=== PATIENT | female | born 2005 | race Caucasian/White ===

== ENCOUNTER 2024-12-18 10:55 | Outpatient (AMB) | payer OTHER, SELFPAY ==
--- NOTE | 2024-12-18 10:58 | AM.OFFWIN_ITS ---
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 - Symptoms started the previous day, isabel racterized by light sensitivity and inability to keep the left eye open yesterday. - The discomfort is persistent and worse ns with light exposure; associated with headache. - She wears contact lenses and may have scratched her eye during handling, which may be related to the onset of symptoms. - Past similar symptoms resolved spontan eously without intervention. - No vision change, lesions, or drainage noted; prior eye exam within the past six months, with a history of poor vision. Next eye exam Monday. Discussion Notes During the consultation, I explained to the patient that she likely has a superficial corneal abrasion in her left eye. I discussed the probable cause being the handling of contact lenses, and advised immediate cessation of contact lens use until further evaluation by her eye doctor. Erythromycin ointment as a therapeutic measure was recommended to promote healing, with emphasis on potential temporary visual blurring and discomfort. I advised the patient to use sunglasses for light sensitivity, and encouraged return visits to the eye doctor within a few days for a comprehensive assessment, as she already has an appointment. I emphasized that if symptoms worsen or do not improve, further medical evaluation would be necessary. All consent for these recommendations was obtained from the patient. Assessment and Plan 1. Superficial Corneal Abrasion, Left Ey e: I determined the likely diagnosis of a superficial corneal abrasion from contact lens use. Management includes erythromycin ointment and refraining from contact use until further evaluation. Pharmacological treatment may cause blurred vision, necessitating precaution with sunglasses. 2. Possible Contact Lens-Related Discomf ort: Assessment suggests potential discomfort from current contact lenses. Advising patient to monitor and discuss with her eye care provider about possible fitting concerns. Patient Instructions - Apply erythromycin ointment to both ey es twice daily for five days. - Avoid contact lenses until evaluation by your eye doctor. - Wear sunglasses for light sensitivity. - Attend your scheduled appointment with the eye doctor on Monday. - Monitor symptoms and seek medical atte ntion if symptoms worsen or do not improve. Consent I reviewed with the patient the need for erythromycin ointment to treat the corneal abrasion. I outlined the risks of blurred vision and photophobia, for which sunglasses were recommended. The patient consented to the treatment plan and acknowledged understanding of the discussed details and follow-up procedures. Patient was informed and verbally consented to the use of an ambient scribe for clinic note documentation during this visit. Total time spent caring for the patient today was 30 minutes. This includes time spent before the visit reviewing the chart, time spent during the visit, and time spent after the visit on documentation, reviewing laboratory results, diagnostic imaging, medications, performing a medically necessary evaluation, counseling on diagnoses, care coordination, ordering appropriate tests, ordering appropriate medications, review of tests performed by other providers, reporting test results with the patient, communication with other healthcare providers. Review of Systems Eyes Reports photophobia (mild on L ) Physical Exam Vital Signs: Last Vital Signs Temp 98.2 F 12/18/24 11:03 Pulse 60 12/18/24 11:03 Resp 12 12/18/24 11:03 BP 106/68 12/18/24 11:03 Pulse Ox 99 12/18/24 11:03 Oxygen Delivery Method Room Air 12/18/24 11:03 BMI result Body Mass Index 21.1 Eyes Visual Simons: normal visual simons by confrontation Alignment and Position: alignment normal Periorbital: periorbital findings normal Eyelids: Yes eyelids normal Conjunctivae: conjunctivae normal Sclerae: sclerae normal Corneas: corneas abnormal on the left fluorescein used and abrasion central and fluorescein used Pupils: Equal, round and reactive pupils present Direct Ophthalmoscopy: normal light reflex and photophobia (mild on L ) Eyes/upper lids images: 2 1. superficial abrasion Neuro Cranial nerves: Yes Equal, round and reactive pupils present Office Procedures Fluorescein eye exam Details: + findings Assessment & Plan Assessment & Plan (1) Corneal abrasion due to contact lens: Code(s): H18.829 - Corneal disorder due to contact lens, unspecified eye Qualifiers: Laterality: left Qualified Code(s): H18.822 - Corneal disorder due to contact lens, left eye Plan . Medications: New 2 erythromycin 0.5 inches ophthalmic (eye) BID 5 days 3.5 grams 0RF Coding Level of Care Code Est Pt Level 4 (63925) Diagnoses Corneal abrasion of left eye due to contact lens H18.822 Laterality: left
[2024-12-18 11:03] VITALS: BP 106/68; PULSE 60; RESP 12; TEMP 36.8; O2SAT 99; BMI 21.1
== END 2024-12-18 11:22 | disposition home or self-care (01) ==
PROVIDERS: Visit Provider Nurse Practitioner Family
DX: H18.822 Corneal disorder due to contact lens, left eye (principal)

== ENCOUNTER → 2024-12-18 10:55 | Outpatient (BNVA) | payer OTHER, SELFPAY | DX: H18.822 Corneal disorder due to contact lens, left eye (principal) | CPT/HCPCS: 99212 ==

== ENCOUNTER 2025-06-22 15:17 | Emergency (ER) | payer SELFPAY ==
[2025-06-22 15:26] VITALS: BP 123/73; PULSE 110; RESP 16; TEMP 36.8; O2SAT 100; BMI 19.7
--- NOTE | 2025-06-22 15:34 | ED.GENADULT ---
HPI - General Adult General Chief complaint: Abdominal Pain Stated complaint: abd pain Time Seen by Provider: 06/22/25 16:49 Source: patient, RN notes reviewed and old records reviewed Mode of arrival: ambulatory Limitations: no limitations History of Present Illness ED Provider: Arab[facility] narrative: Patient is a 20-year-old female referred to the emergency department from urgent care for evaluation of intermittent epigastric abdominal pain for the past few months which has worsened today as well as abnormal vaginal bleeding/discharge. Patient states that she was recently treated for a UTI and ?something else? around 1 month ago. Since that time has been having deferring types of abnormal vaginal bleeding which she describes as spotting, different colors and textures, heavier than spotting. States she has not had to change her pad or tampon more frequently than once per hour. Today she developed epigastric pain while at work which was worsened by drinking water and worsened by walking around. She denies any vomiting, diarrhea or constipation but does report intermittent nausea. States that she is currently on OCP. Denies any new sexual partners. Denies any dysuria, frequency, hematuria. Denies back or flank pain. MD complaint: abdominal pain and abnormal vaginal discharge Onset (ago): month(s) Related Data Previous Rx's ?Medication ?Instructions ?Recorded erythromycin 5 mg/gram (0.5 %) eye 0.5 inch ophthalmic (eye) BID 5 12/18/24 ointment days #3.5 grams famotidine 20 mg tablet 20 mg PO DAILY #14 tabs 06/22/25 Allergies Allergy/AdvReac Type Severity Reaction Status Date / Time No Known Allergies Allergy Verified 06/22/25 15:27 Review of Systems Review of Systems: as per hpi Yes all other systems are reviewed and are negative Constitutional: Constitutional: Reports as per HPI [facility] Social History Social History Smoked in Last 30 Days: No Use of substances other than those prescribed or required for medical reasons: No Advance Directives: No Advance Directives Information Provided: Yes Physical Exam ED Vital Signs: Vital Signs - 24 hr 06/22/25 15:26 06/22/25 17:58 Temperature 98.2 F Pulse Rate 110 H 75 Respiratory Rate 16 16 Blood Pressure 123/73 96/61 Pulse Oximetry 100 100 Oxygen Delivery Method Room Air Room Air BMI result Body Mass Index 19.7 Vital signs have been reviewed and appear to be correct. Blood pressure normal. Heart rate slightly tachycardic. Respiratory rate normal. Temperature normal. Oxygen saturation normal. Const General: cooperative, healthy appearing and no acute distress Orientation/consciousness: oriented to person, oriented to place, oriented to time and patient oriented x3 Limitations: no limitations HENMT Head: Yes normocephalic and Yes atraumatic Ears: external ears normal General nose exam: Normal external nose present Face and sinus: Yes face symmetric Mouth: oropharynx normal and moist mucous membranes Throat: Yes uvula midline Eyes Pupils: Equal, round and reactive pupils present Neck Neck: Yes normal visual inspection and Yes supple Resp Effort & Inspection: normal respiratory effort and able to speak in complete sentences Auscultation: clear to auscultation bilaterally Cardio Rate: regular rate Rhythm: regular rhythm Heart sounds: S1 normal heart sound present and S2 normal heart sound present GI Palpation (GI): Soft to palpation and Tenderness to palpation present (GI) in the epigastrum (mild) Auscultation: normoactive bowel sounds Other: Pelvic exam chaperoned by FRANK Hdez tech General: Yes no CVA tenderness External Female Exam: normal external appearance Speculum Exam - Vagina: normal appearance of the vagina, normal palpation and abnormal vaginal discharge bloody (dark brown blood) Speculum Exam - Cervix: normal appearance of the cervix, normal palpation, Cervical os closed and nontender Bimanual exam- vagina & uterus: normal palpation, normal palpation and No Cervical tenderness present Back/Spine/Pelvis Back: no CVA tenderness Skin General skin exam: elasticity normal and turgor normal Neuro General: oriented to person, oriented to place, oriented to time, patient oriented x3, moves all extremities, no focal motor deficits and CN's II-XI intact bilaterally Cranial nerves: Yes Equal, round and reactive pupils present Cognition (Neuro): normal cognition Extrem General: Yes full ROM, Yes no pedal edema and Yes no calf tenderness Psych Mental Status: mental status grossly normal Affect: normal affect Thought process: Normal thought process present Course Course Course Narrative: Rapid medical examination performed in triage by Chica Uribe PA-C. Patient is a 20 year old assigned female at presenting to the emergency department with pelvic pain and vaginal bleeding. Detailed physical exam and review of systems are deferred to the manager customer service. Labs ordered. Patient placed back in the waiting room pending room availability and results. Medications Administered Discontinued Medications Generic Name Dose Route Start Last Admin Trade Name Maria PRN Reason Stop Dose Admin Al Hydroxide/Mg Hydroxide 30 ml 06/22/25 17:24 06/22/25 17:37 Magnesium Hydrox/Alum Hydrox 30 Ml Oral.Susp PO 06/22/25 17:25 30 ml ONCE ONE Administration Lidocaine HCl 15 ml 06/22/25 17:24 06/22/25 17:37 Lidocaine Hcl Viscous 2 % 15 Ml Solution MUCOUS MEM 06/22/25 17:25 15 ml ONCE ONE Administration Medical Decision Making Medical Decision Making [facility] Narrative: Patient is a 20-year-old female referred to the emergency department from urgent care for evaluation of intermittent epigastric abdominal pain for the past few months which has worsened today as well as abnormal vaginal bleeding. On exam patient is awake, A+Ox3, VS WNL, afebrile, normal neurological exam without focal deficits, physical exam findings as above. Given reported symptoms and physical exam findings, initial differential includes but is not limited to GERD, PUD, gastritis, UTI, STI, abnormal uterine bleeding. Labs unremarkable, hcg negative. UA without evidence of infection. Pelvic swabs pending, patient will be updated with any positive results. Results discussed with patient and all questions answered. Patient reports significant improvement in pain after GI cocktail. Will start patient on famotidine for suspected GERD. Will refer to chemical dependency therapist for further evaluation of vaginal bleeding. Return precautions discussed at bedside. Patient verbalized understanding of and agreement with plan. Differential Diagnosis Differential Diagnoses: The differential diagnosis associated with the presentation includes As per [facility] Admission/Observation Consideration of admission/observation: Escalation of care including admission/observation considered Patient would have been admitted to the hospital had their clinical presentation warranted hospital admission. Lab Data [facility] Lab Attestation statement: I reviewed the patient's lab results. as per [facility] 06/22/25 16:00 06/22/25 16:00 Labs: Lab Results 06/22/25 06/22/25 Range/Units 16:00 17:21 WBC 4.8 (4.8-10.8) X10*3/uL RBC 4.27 (4.20-5.50) X10*6/uL Hgb 13.0 (12.0-16.0) g/dl Hct 37.2 (37.0-47.0) % MCV 87.1 (80.0-98.0) fL MCH 30.4 (27.0-33.0) pg MCHC 34.9 (31.0-35.0) g/dl RDW 13.2 (11.0-16.0) % Plt Count 177 (160-400) X10*3/uL MPV 10.6 (9.4-12.3) fL Immature Gran % (Auto) 0.2 (0.0-0.4) % Neut % (Auto) 46.2 (45-73) % Lymph % (Auto) 43.2 H (20-40) % Grayson % (Auto) 8.6 (2-11) % Eos % (Auto) 1.0 (0-4) % Baso % (Auto) 0.8 (0-2) % Lymph # (Auto) 2.1 (1.2-4.9) X10*3/uL Grayson # (Auto) 0.4 (0.1-1.2) X10*3/uL Eos # (Auto) 0.1 (0.0-0.4) X10*3/uL Baso # (Auto) 0.0 (0.0-0.2) X10*3/uL Abs Immat Gran (auto) 0.01 (0.00-0.03) X10*3/uL Absolute Neuts (auto) 2.2 (2.0-8.3) x10*3/uL Absolute Nucleated RBC 0.000 (0.0-0.012) X10*3/uL Nucleated RBC % (auto) 0.0 (0.0-0.2) /100WBC Sodium 141 (135-145) mmol/L Potassium 3.5 (3.3-5.1) mmol/L Chloride 110 H (96-108) mmol/L Carbon Dioxide 21 L (22-29) mmol/L Anion Gap 14 (12-20) BUN 11 (9-16) mg/dL Creatinine 0.74 (0.5-1.4) mg/dL Estim Creat Clear Calc 98.2 Estimated GFR > 60 Random Glucose 83 (60-115) mg/dL Calcium 9.1 (8.4-10.2) mg/dL Total Bilirubin 0.6 (0.0-1.0) mg/dL AST 25 (5-31) U/L ALT 17 (0-31) U/L Alkaline Phosphatase 50 (39-117) U/L Total Protein 7.2 (6.5-8.0) g/dL Albumin 4.4 (3.5-5.0) g/dL Beta HCG, Quant < 2 mIU/mL Urine Color Yellow Urine Appearance Clear Urine pH 5.5 (5.0-9.0) Ur Specific Billings 1.020 (1.005-1.025) Urine Protein Negative (Neg-Trace) mg/dL Urine Glucose (UA) Negative (Negative) mg/dL Urine Ketones Trace (Negative) mg/dL Urine Blood Moderate (2+) H (Negative) Urine Nitrite Negative (Negative) Ur Leukocyte Esterase Negative (Negative) Urine RBC 0-2 (0-2) /HPF Urine WBC 0-5 (0-5) /HPF Ur Squamous Epith Cells 0-2 (0-2) /HPF Urine Bacteria None Seen (None Seen) Hyaline Casts 0-2 (0-2) /LPF External Record Review External record reviewed: Inpatient record, Office record and Outpatient record Prescription Management I considered prescription management with: Other Discharge Plan Discharge Clinical Impression: GERD (gastroesophageal reflux disease), Vaginal bleeding Patient Disposition: Home, Self-Care Instructions: Abnormal (Dysfunctional) Uterine Bleeding (ED), GERD (Gastroesophageal Reflux Disease) (DC) Additional Instructions: You were evaluated in the emergency department today for abdominal pain and vaginal bleeding. It is likely that your abdominal pain is due to GERD and you are being prescribed a daily medication called famotidine. Take this as prescribed. We recommend that you follow up with a ASSOCIATE WEB DEVELOPER for further evaluation of your vaginal bleeding. Your pelvic swabs are pending and you will be contacted with any positive results. Return to the emergency department if you are bleeding through more than 1 pad or tampon per hour, have worsening abdominal pain, fever 100.4? F or greater or any other new or concerning symptoms. You were seen in the Emergency Department today for abnormal vaginal bleeding. Your blood counts were stable. You need to follow up with your primary care doctor or OBGYN. Please return for worsening symptoms such as pain, dizziness, fainting, bleeding this is much heavier than a period and you are having large clots bigger than a golf ball. Please see list of OGBYN providers below if you do not have one. [facility] [place] [phone] [facility] [address] [facility] [phone] [facility] [address] [place] [phone] [facility] [place] [phone] [facility] [place] [phone] Prescriptions: New famotidine 20 mg tablet 20 mg PO DAILY Qty: 14 0RF No Action erythromycin 5 mg/gram (0.5 %) ointment 0.5 inch ophthalmic (eye) BID 5 Days Qty: 3.5 0RF Print Language: Portuguese
--- OUTSIDE RECORDS SUMMARY | 2025-06-22 16:00 | XMS_ITS | Clinical Summary ---
Author Organization [facility] Address [address] [place], [place] [id number] Phone Care Team Providers Care Quality Control Coordinator Name Role Phone Polly Betancourt NP Primary Care Provider + Allergies No known active allergies Medications No known medications Social History Tobacco Use Types Packs/Day Years Used Date Smoking Tobacco: Never Assessed Education Answer Date Recorded Are you interested in more education? Not on griffin e 12/21/2024 Are you concerned about learning? Not on file 12/21/2024 No 12/21/2024 No 12/21/2024 Digital Access Answer Date Recorded No 12/21/2024 No 12/21/2024 Reliable internet access at home? Not on file 12/21/2024 Device with a working camera? Not on file Comments Unknown Sex and Gender Information Value Date Recorded Sex Assigned at Not on file Legal Sex Female 7:11 PM EDT Gender Identity Not on file Sexual Orientation Not on file Last Filed Vital Signs Vital Sign Reading Time Taken Comments Blood Pressure 115/75 12/20/2024 7:21 PM EDT Pulse 80 12/20/2024 7:21 PM EDT Temperature 36.8 C (98.3 F) 12/20/2024 7:21 PM EDT Respiratory Rate 16 12/20/2024 7:21 PM EDT Oxygen Saturation 100% 12/20/2024 7:21 PM EDT Inhaled Oxygen Concentration - - Weight - - Height - - Body Mass Index - - Plan of Treatment Health Maintenance Due Date Last Done Comments Adult Td,Tdap Booster 2003 DEPRESSION SCREENING 2015 SMOKING Hx and SMOKELESS TOB ACCO SCREENING 02/13/2016 HPV VACCINES (1 - 3-dose series) 2018 CHLAMYDIA SCREENING 2019 MENINGOCOCCAL VACCINES (B) ( 1 of 2 - Standard) 2019 HEPATITIS C SCREENING 2021 HIV ONE-TIME SCREENING (18-6 5 YEARS) 2021 PAP SMEAR 02/13/2024 INFLUENZA VACCINE (#1) 2025 COVID-19 VACCINE ( - 2023-2 5 season) 2025 HEPATITIS A VACCINES Aged Out No long er eligible based on patient's age to complete this topic HIB VACCINES Aged Out No longer eligi ble based on patient's age to complete this topic MENINGOCOCCAL VACCINES (ACWY) Aged Out No longer eligible based on patient's age to complete this topic PNEUMOCOCCAL VACCINES (0-49 years) Aged Out No longer eligible based on patient's age to complete this topic Medical Devices Not on file Insurance [employer] [address] [facility] [employer] [place] [employer] [facility] [employer] [place] [employer] [place] [employer] [facility] [employer] [place] [phone] Care Teams Quality Control Coordinator Relationship Specialty Start Date End Date Polly Betancourt NP [address] [place] [phone] PCP - General Nurse Practitioner 12/20/24 Additional Source Comments The information contained in this document represents components of the legal health record. It is not the complete legal health record.[facility]
[2025-06-22 16:04] LABS: MANUAL DIFF FLAG NO
[2025-06-22 16:05] LABS: Hematocrit 37.2 % (37.0-47.0); Hemoglobin 13.0 g/dl (12.0-16.0); Imm Gran Abs Auto 0.01 X10*3/uL (0.00-0.03); Imm Gran Pct Auto 0.2 % (0.0-0.4); Lymphocytes Absolute Auto 2.1 X10*3/uL (1.2-4.9); Mean Corpuscular HGB Conc 34.9 g/dl (31.0-35.0); Mean Corpuscular Hemoglobin 30.4 pg (27.0-33.0); Mean Corpuscular Volume 87.1 fL (80.0-98.0); NRBC Abs Auto 0.000 X10*3/uL (0.0-0.012); NRBC Pct Auto 0.0 /100WBC (0.0-0.2); Platelet Count 177 X10*3/uL (160-400); Red Blood Count 4.27 X10*6/uL (4.20-5.50); White Blood Count 4.8 X10*3/uL (4.8-10.8)
[2025-06-22 16:24] LABS: Alanine Aminotransferase 17 U/L (0-31); Albumin Level 4.4 g/dL (3.5-5.0); Alkaline Phosphatase 50 U/L (39-117); Anion Gap 14 (12-20); Aspartate Amino Transferase 25 U/L (5-31); Blood Urea Nitrogen 11 mg/dL (9-16); Calcium 9.1 mg/dL (8.4-10.2); Carbon Dioxide 21 mmol/L (22-29); Chloride 110 mmol/L (96-108); Creatinine Clr Calc Pharmacy 98.2; Estimated Glomerular Filt Rate > 60; Potassium 3.5 mmol/L (3.3-5.1); Sodium 141 mmol/L (135-145); Total Protein 7.2 g/dL (6.5-8.0)
--- NOTE | 2025-06-22 16:30 | PC.NURSE ---
Patient is a 20 yo female who prsents with c/o generalized abdominal with some vaginal bleeding for the past 2 weeks. Alert and oriented. Lungs clear bilat. Respirations even and non-labored. Abdomen soft, with positive bowel sounds. No significant tenderness noted. Positive pedal pulses with no edema noted.
[2025-06-22 17:28] LABS: Appearance Urine Clear; Glucose Urine UA Negative (Negative); PH 5.5 (5.0-9.0); Specific Gravity - Urine 1.020 (1.005-1.025); UMIC TRIGGER UACC YES
--- NOTE | 2025-06-22 17:30 | PC.NURSE ---
Pelvic and a bi-manual performed. Patient tolerated well.
[2025-06-22] MEDS: Lidocaine HCl Viscous 2 % 15 ML SOLUTION MUCOUS MEM (17:37)
[2025-06-22] MEDS: Magnesium Hydrox/Alum Hydrox 30 ML ORAL.SUSP PO (17:37)
[2025-06-22 17:58] VITALS: BP 96/61; PULSE 75; RESP 16; O2SAT 100
[2025-06-22 18:42] VITALS: BP 96/61; PULSE 75; RESP 16; TEMP 36.7; O2SAT 100
[2025-06-23 12:09] LABS: Bacterial Vaginosis PCR NEGATIVE (Negative); Candida Group PCR NOT DETECTED (Not Detect); Candida glab krusei PCR NOT DETECTED (Not Detect); Trichomonas vaginalis PCR NOT DETECTED (Not Detect)
[2025-06-23 12:40] LABS: CT PCR NOT DETECTED (Not Detect.); NG PCR NOT DETECTED (Not Detect.)
== END 2025-06-22 18:43 | disposition home or self-care (01) ==
PROVIDERS: Physician Assistant Medical; Emergency Provider Emergency Medicine Emergency Medical Services
DX: K21.9 Gastro-esophageal reflux disease without esophagitis (principal); N93.9 Abnormal uterine and vaginal bleeding, unspecified; R10.2 Pelvic and perineal pain; Z79.899 Other long term (current) drug therapy
CPT/HCPCS: 36415; 80053; 81001; 81515; 84702; 85025; 87491; 87591; 99283; 99284